=== PATIENT | female | born 1960 | race Caucasian/White ===

== ENCOUNTER 2018-02-05 00:13 | Day surgery (SDC) | payer BC ==
[~2018-02-05] VITALS: Ht 160 cm; Wt 98.0 kg
[2018-02-05] VITALS (7 sets, daily range): BP systolic 90–135; BP diastolic 69–92
[~2018-02-05 00:13] MED LIST: ASPI81TA94 PO; FLUT1BLS3 INH; IBUP200C74 PO; IPRA3AMP10 IH; LISI20TA29 PO; METF-450 PO; MONT10TA PO; NEBI10TA4 PO; TIOT4MIS2 INH; VENTOLIN HFA INH
[2018-02-05] MEDS ORDERED: ROPIVACAINE 0.2% 400 MG/200ML 250 ML CONINFUS ONE (06:00)
[2018-02-05] MEDS ORDERED: NORMOSOL R SOLN(*) 1000 ML BAG 1,000 ML IV PRN (06:00)
[2018-02-05] MEDS ORDERED: LIDOCAINE/SOD BICARB 8.4% SYR ID ONE (06:00)
[2018-02-05] MEDS ORDERED: MIDAZOLAM 2 MG/2 ML VIAL IVP PRN (06:00)
[2018-02-05] MEDS ORDERED: FAMOTIDINE 20 MG TAB PO ONE (06:00)
[2018-02-05] MEDS ORDERED: ceFAZolin(*) 2GM/D5W 50ML 50 ML IVPB ONE (06:00)
[2018-02-05] MEDS ORDERED: BACITRACIN/POLYMY B OINT 15 GM TP ONE (06:49)
[2018-02-05] MEDS ORDERED: ALBUTEROL/IPRATROPIUM 3 ML NEB ONE ×2 (06:51→08:40)
[2018-02-05] MEDS ORDERED: MIDAZOLAM 2 MG/2 ML VIAL ONE ×2 (06:53→07:45)
[2018-02-05] MEDS ORDERED: fentaNYL CITR 100 MCG/2 ML AMP ONE (06:54)
[2018-02-05] MEDS ORDERED: PROM12.514 RC (10:53)
[2018-02-05] MEDS ORDERED: HYDR-393 PO (10:55)
--- NOTE | 2018-02-05 12:54 | OPERATIVE REPORT 1 ---
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 PROCEDURE PERFORMED Open debridement and manipulation of the subtalar joint and open debridement of nonunion of the medial and lateral talus. ESTIMATED BLOOD LOSS Minimal. FLUIDS Minimal. TOURNIQUET TIME Less than 30 minutes. DESCRIPTION OF PROCEDURE The patient was brought to the operating room and placed in the supine position and bump placed under the right hip to align the right lower extremity. She was prepped and draped in the normal sterile fashion using Prevail. Sterile stockinettes and U-drape were placed on the lower extremity. Stockinette was incised from above knee and held with Coban. Esmarch was then used to exsanguinate the lower extremity and tourniquet turned up to 300 mmHg. First incision was made directly over the medial aspect of the ankle. We developed a plane right between the posterior tibial tendon and the FHL tendon, moving the posterior tibialis nerve out of the way and protecting it. From here, I was able to go down using fluoroscopy to identify the medial nonunion, which was actually quite large, 1 cm x 1 cm. Sharp dissection was done to remove it without any difficulty. I debrided the fracture site and at that point washed out with normal saline. We brought fluoroscopy in to make sure that we had gotten all the medial pieces, which we had, and then we closed the medial side using 3-0 Monocryl and 4-0 Monocryl in a running stitch manner. We then turned our attention to the lateral side. We made an incision directly over the sinus tarsi. Skin was incised down to the subcutaneous tissue. The subcutaneous tissue was bluntly dissected down. Once I found the sinus tarsi I could go up from underneath the look at the inferior portion of the talus and found large lateral nonunion of the talus present. There was no union at this site as well as the medial side. I was able to sharpy dissect around it, moving the peroneal tendon out of the way and was able to debride the area without any difficulty. The third piece was just on the lateral portion of the talar neck, which was directly in front of me, using the sinus tarsi incision. I was able to find it, debride it and remove it. We brought fluoroscopy in and took lateral AP and oblique and made sure we had all of the pieces that were removed and they were. We washed out with normal saline, closed using 3-0 Monocryl and 4-0 Monocryl in a running stitch manner. Adaptic 4x4's and Boaz bandage. The patient went to recovery in a boot. BRENNAN
[2018-02-05] MEDS ORDERED: ROPIVACAINE 0.5% 20 ML VIAL ONE (15:22)
[2018-02-05] MEDS ORDERED: ROPIVACAINE 0.2% 20 ML VIAL ONE (15:22)
[2018-02-05] MEDS ORDERED: DEXAMETHASONE SOD PHOS 10MG/ML ONE (15:24)
== END 2018-02-05 09:30 | disposition home or self-care (01) ==
LOC: OR 00:13
PROVIDERS: ATTEND Orthopaedic Surgery
DX: S92.144A Nondisplaced dome fracture of right talus, initial encounter for closed fracture (principal); I10 Essential (primary) hypertension; E11.9 Type 2 diabetes mellitus without complications; K21.9 Gastro-esophageal reflux disease without esophagitis
CPT/HCPCS: 11010; 36416; 76942; 82948; 94640; J1100; J2250; J2795; J3010; J7620; J0690